=== PATIENT | male | born 1955 | race Caucasian/White ===

== ENCOUNTER 2018-07-30 17:09 | Outpatient (REF) | payer MEDICARE, BC, SELFPAY ==
[2018-07-30 22:21] LABS: Anion Gap 11.2 mmol/L (3-11); BUN 22 mg/dL (7-18); CO2 25.8 mmol/L (21.0-32.0); Calcium 9.2 mg/dL (8.5-10.1); Chloride 102 mmol/L (98-107); Glucose 92 mg/dL (70-100); Potassium 4.1 mmol/L (3.5-5.1); Sodium 139 mmol/L (136-145)
== END 2018-07-30 17:29 ==
LOC: NCHCN 17:09
PROVIDERS: PCP Specialist/Technologist Athletic Trainer; Visit Provider Specialist/Technologist Athletic Trainer
DX: I10 Essential (primary) hypertension (principal)
CPT/HCPCS: 80048

== ENCOUNTER 2018-10-03 15:52 | Emergency (ER) | payer MEDICARE, BC, SELFPAY ==
[2018-10-03 15:54] VITALS: BP 144/73; PULSE 110; RESP 20; TEMP 36.8; O2SAT 96
--- NOTE | 2018-10-03 16:06 | ED.GENADUL_ITS ---
Discharge Plan Disposition Patient Disposition: HOME Condition: Stable Discharge Details Chief Complaint: Urinary Clinical Impression: Dysuria, Urinary tract infection Primary Care Provider: Sabas Langford ED Provider: Pacheco Casillas Home Meds and New Rx's Prescriptions: New levofloxacin 750 mg tablet 750 mg PO DAILY Qty: 7 RF: 0 Continued losartan 50 mg tablet 50 mg PO DAILY RF: 0 sildenafil (antihypertensive) 20 mg tablet 20 mg PO TID RF: 0 naproxen sodium [Aleve] 220 MG capsule 220 mg PO PRN RF: 0 Discharge Instructions Instructions: Urinary Tract Infection in Men (ED) Additional Instructions: follow up with your primary care provider in 1 week especially if symptoms continue if you have fevers, persistent vomit, severe abdominal pain or feel more ill return to the emergency department Medical Decision Making 63 yo male comes in with several days of burning at the end of urination and also burning around the rectal area. Denies being sexually active, no discharge or fevers and no hx of stds. Has dry skin around the rectum, no bleeding or abscesses or drainage. On abnormalities noted on penile and scrotal exam no tenderness. Will check UA ua does have significant wbc's, will tx with oral abx and advised f/u with pcp and return precautions given Differential Diagnosis uti, prostatitis, dry skin Lab Data Lab results reviewed: Yes I reviewed the patient's lab results. HPI General Mode of arrival: ambulatory . Date/Time Provider Initiated Documentation: 10/03/18 15:55 . Limitations to Documentation: no limitations . Information obtained by: patient . History of Present Illness 63 year old M presents to the emergency department with the chief complaint of burning at end of peeing, described as moderate, Quality is described as burning, Patient started experiencing this day(s) (3) and it has been constant. No relieving factors improve symptom(s), No exacerbating factors reported . Patient did receive the following treatments prior to arrival, none Related Data Home Medications Medication Instructions Recorded Confirmed naproxen sodium [Aleve] 220 mg PO PRN 07/20/15 10/03/18 losartan 50 mg tablet 50 mg PO DAILY 08/07/18 10/03/18 sildenafil (antihypertensive) 20 20 mg PO TID 08/07/18 10/03/18 mg tablet levofloxacin 750 mg PO DAILY #7 tab 10/03/18 Previous Rx's Medication Instructions Recorded levofloxacin 750 mg PO DAILY #7 tab 10/03/18 Allergies Allergy/AdvReac Type Severity Reaction Status Date / Time ampicillin Allergy Severe rash Unverified 10/03/18 15:57 General Stated Complaint: Urinary CAROL: 3 Review of Systems Review of Systems All systems reviewed & are unremarkable except as noted in HPI and below Constitutional Denies chills, Denies fever(s) and Denies weakness Cardiovascular Denies chest pain and Denies dyspnea Respiratory Denies dyspnea Gastrointestinal Denies abdominal pain, Denies nausea and Denies vomiting Integumentary/Breasts Denies rash Neurologic Denies weakness PFSH Social History Smoking/Tobacco Use Status: Never Alcohol Intake: current Alcohol Intake frequency: 0-2 drinks per day Alcohol type: wine Drug use: Never Substance use type: does not use Do you feel safe at home: Yes Do you feel safe in your relationship?: Yes Exam Const General: no acute distress Orientation: alert HENMT Head: normal to inspection Ears: external ears normal General nose exam: external nose normal Mouth: moist mucous membranes Eyes General: appearance normal, both eyes and all related structures Neck Neck: normal visual inspection Resp Effort & Inspection: normal respiratory effort and able to speak in complete sentences Cardio Rate: regular rate Skin General skin exam: no rashes or lesions noted Neuro General: alert and oriented x3 Extrem General: normal to inspection Psych Mental Status: mental status grossly normal Course Vital Signs Temperature 36.8 C 10/03/18 15:54 Pulse 110 H 10/03/18 15:54 Respiratory Rate 20 10/03/18 15:54 Blood Pressure 144/73 H 10/03/18 15:54 Pulse Oximetry 96 10/03/18 15:54 Temperature 36.8 C 10/03/18 15:54 Temperature Source Temporal Artery Scan 10/03/18 15:54 Pulse 110 H 10/03/18 15:54 Respiratory Rate 20 10/03/18 15:54 Respiratory Effort Non-Labored 10/03/18 15:54 Blood Pressure 144/73 H 10/03/18 15:54 Blood Pressure Position Sitting 10/03/18 15:54 Pulse Oximetry 96 10/03/18 15:54 Oxygen Delivery Method Room Air 10/03/18 15:54 Oxygen Flow Rate 0 10/03/18 15:54 Pain Level 3 10/03/18 15:54
[2018-10-03 16:57] LABS: Bilirubin Negative (Negative); Blood Moderate (Negative); Clarity Clear (Clear); Glucose Negative (Negative); Ketones Trace mg/dL (Negative); Leukocyte Esterase Small (Negative); Nitrite Negative (Negative); Specific Gravity >= 1.030 (1.005-1.025); Urobilinogen 0.2 EU/dL (Up TO 0.2); pH 5.5 (5-8)
[2018-10-03 17:08] LABS: Bacteria Negative HPF (Negative); C & S Indicated? Yes; Casts Negative LPF (Negative); Crystals Negative HPF (Negative); Epithelial Cells Negative HPF (Negative); Mucus Negative (Negative); Other Cells Negative (Negative); WBC >50 HPF (0-5)
[2018-10-03] MEDS: levoFLOXacin 500 MG, levoFLOXacin 250 MG 750 MG PO (17:22)
[2018-10-05 15:08] LABS: Chlamydia Result Negative; GC Result Negative
== END 2018-10-03 17:26 | disposition home or self-care (01) ==
PROVIDERS: Emergency Provider Emergency Medicine; PCP Specialist/Technologist Athletic Trainer
DX: N39.0 Urinary tract infection, site not specified (principal); L98.8 Other specified disorders of the skin and subcutaneous tissue; K62.89 Other specified diseases of anus and rectum
CPT/HCPCS: 87491; 87591; 99283; 81003; 81015; 87086

== ENCOUNTER 2018-10-14 15:24 | Outpatient (REF) | payer MEDICARE, BC, SELFPAY ==
[2018-10-14 22:04] LABS: Bacteria Negative HPF (Negative); C & S Indicated? Yes; Casts Negative LPF (Negative); Crystals Negative HPF (Negative); Epithelial Cells Negative HPF (Negative); Mucus Negative (Negative); Other Cells Negative (Negative); RBC Negative (0-2)
[2018-10-16 09:54] LABS: PSA, Screening 2.7 ng/ml (0-4.5)
== END 2018-10-14 15:44 ==
LOC: NCHCN 15:24
PROVIDERS: PCP Specialist/Technologist Athletic Trainer; Visit Provider Specialist/Technologist Athletic Trainer
DX: R31.9 Hematuria, unspecified (principal); N39.0 Urinary tract infection, site not specified; Z12.5 Encounter for screening for malignant neoplasm of prostate
CPT/HCPCS: 84153; 81015; 87086

== ENCOUNTER → 2018-10-22 15:11 | Outpatient (BNVA) | payer MEDICARE, BC, SELFPAY | PROVIDERS: PCP Specialist/Technologist Athletic Trainer; Referring Provider Specialist/Technologist Athletic Trainer; Visit Provider Physical Therapy Assistant | DX: Z12.11 Encounter for screening for malignant neoplasm of colon (principal); Z86.010 Personal history of colon polyps; I10 Essential (primary) hypertension ==

== ENCOUNTER 2018-11-02 10:01 | Day surgery (SDC) | payer MEDICARE, BC, SELFPAY ==
--- NOTE | 2018-11-02 07:05 | W.COLOREPORT ---
Date of service: 11/02/18 Time of Service: :21 Colonoscopy Report Date of procedure: 11/02/18 Pre-op diagnosis general: Hx of polyps Post-op diagnosis procedure note: same (Internal hemorrhoids, Diverticulosis and polyps) Procedure: Colonoscopy with polypectomy by hot snare and cold forceps Surgeon: Amina Ulloa Anesthesia proc note operative: other (General/ ASA 2/Janine Thomas, DUNG) Estimated blood loss (mL): 5 Pathology: other (Cecal polyp, Ascending polyp, sigmoid polyp x2, rectal polyp x2) Complications: None Disposition: same day Indications: Mr. Gill is a pleasant 63-year-old gentleman who was seen in the office for a follow-up colonoscopy. His last colonoscopy was in 2013 and he had 5 tubular adenomas and one hyperplastic polyp. Risks, benefits and complications have been reviewed. Complications include but are not limited to bleeding, pain, perforation, missed small lesion/polyp, sore throat, aspiration and adverse reaction to the medications. Questions were entertained and answered to their satisfaction and they wished to proceed. No guarantees were given or implied. Prep: Miralax/Dulcolax Procedure Start Time: :21 Procedure End Time: 11:58 Retraction Time: 29 minutes Findings: Multiple sessile polyps and one larger pedunculated polyp. The pedunculated polyp was just proximal to the previously tattooed area at 18 cm. There was moderate diverticulosis and Grade 2 internal hemorrhoids Procedure Description: After informed consent was obtained the patient was taken to the procedure room and placed in a left decubitous position. Monitors were applied and a time out was done. The patients name, date of , procedure, allergies to medications and metal in their body was reviewed. The patient was then sedated. Once sedated and comfortable a rectal exam was done. External exam was normal. Internal exam revealed a normal sphincter tone and no palpable masses. The prostate felt smooth. The scope was then introduced and retro-flexed. Grade 2 internal hemorrhoids were identified. There were no polyps or masses noted on retro-flexion. The scope was then advanced to the cecum without difficulty. The TI and appendiceal orifice were identified. The prep was good. The scope was then slowly retracted over 29 minutes back into the rectum. Polyps were removed with hot snare in the cecum, with cold forceps in the ascending and sigmoid colon at 22 cm, with a hot snare in the sigmoid at 18 cm, and with cold forceps in the rectum x2. The scope was removed and the patient was woken up and taken back to Same day surgery in stable condition. The patient tolerated the procedure well and there were no immediate complications. Follow up: Follow up will depend on final pathology results.
--- NOTE | 2018-11-02 07:08 | W.PM.DSUDISC ---
Discharge Plan Disposition Patient Disposition: HOME Condition: Good Discharge Details Reason For Visit: Hx of polyps Attending Provider: Amina Ulloa Primary Care Provider: Sabas Langford Home Meds and New Rx's Prescriptions: Continued losartan 50 mg tablet 50 mg PO DAILY RF: 0 sildenafil (antihypertensive) 20 mg tablet 20 mg PO TID RF: 0 Discontinued polyethylene glycol 3350 17 gram/dose powder 238 g PO ONCE Qty: 238 RF: 0 bisacodyl [Dulcolax (bisacodyl)] 5 mg tablet,delayed release (DR/EC) 5 mg PO ONCE Qty: 4 RF: 0 Discharge Instructions Instructions: Colonoscopy (GEN), Diverticulosis (ED), Colorectal Polyps (GEN), Hemorrhoids (ED) Additional Instructions: Findings: 6 polyps Follow up: depends on final pathology. I will send you a letter or call once I have the final pathology results Please call if you develop: fevers >101.5 Nausea or Vomiting Abdominal pain that is not transient DAY SURGERY UNIT POST COLONOSCOPY INSTRUCTIONS 1. Because there will be medication in your system for the next 24 hours, you may feel a little sleepy. Your coordination will be affected. Therefore: a. Do not drive or operate dangerous equipment for 24 hours. b. Do not drink alcohol beverages for 24 hours (not even beer). c. Plan to go home and rest for the day. 2. Generally there are no restrictions on your activity after a day or so has gone by, but you may feel a bit fatigued for a few days. 3 After you arrive home you may have a light meal and return to a normal diet as you can tolerate it without feeling sick to your stomach. 4. After surgery, you may feel pain or discomfort. This should be only transient, but if it persists please contact your doctor. 5. If there are any questions regarding the findings of your procedure, please feel free to contact your doctor. 6. If you are unable to contact your doctor with a problem, contact the hospital at [phone]. 7. Continue all your regular medications unless directed otherwise. I understand the above instructions and have no questions. Signature of Patient or Responsible Adult Escort Date/Time Name of Responsible Adult Escort Signature of Nurse Date/Time Activity:: Activity as Tolerated Diet:: As Tolerated Discharge Orders Discharge Orders: Discharge Order (Routine); Ordered 11/02/18 Ordered By: Amina Ulloa DS: Diagnosis Discharge Diagnosis (1) History of colonoscopy: Status: Chronic (2) Colorectal polyps: (3) Diverticulosis: (4) Internal hemorrhoids:
[2018-11-02 10:30] VITALS: BP 118/75; PULSE 88; RESP 16; TEMP 36.4; O2SAT 98
[2018-11-02] MEDS: Lactated Ringers 1,000 ML 80 ML IV (10:50)
[2018-11-02] MEDS: Lidocaine 2% Pres-Free 5 ML VIAL (11:09)
[2018-11-02] MEDS: PROPOFOL 500 MG/50 ML BTL 50 MG (11:15)
--- NOTE | 2018-11-02 11:31 | BOWEL_PTH ---
PATIENT: Obdulio Gill LOC: [facility] U#:[id number] AGE/SX: 63/M ROOM: RE11/02/[address]: Amina Ulloa MD : [id number] BED: DIS: 11/02/2018 SPEC #: [id number] RECD: 11/02/18 12:50 STATUS: LIUDMILA RE #: [id number] HARRIETT: 11/02/18 11:[address]: Amina Ulloa DEPT: Surgical Specimen RECD BY: Aliya Mcclelland ENTERED: 11/02/18 12:53 SP TYPE: Bowel OTHR DR: Sabas Langford Tissues: 1 - BIOPSY BOWEL 2 - BIOPSY BOWEL 3 - BIOPSY BOWEL 4 - BIOPSY BOWEL 5 - BIOPSY BOWEL Procedures: GROSS AND MICRO LEVEL 4 Comments: [id number]
[2018-11-02 12:40] VITALS: BP 124/76; PULSE 83; RESP 16; TEMP 36.6; O2SAT 97
== END 2018-11-02 13:13 | disposition home or self-care (01) ==
LOC: SUR 10:01
PROVIDERS: PCP Specialist/Technologist Athletic Trainer; Visit Provider Surgery
PROC: 0DJD8ZZ Inspection of Lower Intestinal Tract, Via Natural or Artificial Opening Endoscopic (ICD-10-PCS; CPT 45378; principal; 2018-11-02 11:15)
DX: Z12.11 Encounter for screening for malignant neoplasm of colon (principal); Z86.010 Personal history of colon polyps; Z87.19 Personal history of other diseases of the digestive system; Z80.0 Family history of malignant neoplasm of digestive organs; D12.0 Benign neoplasm of cecum; D12.2 Benign neoplasm of ascending colon; D12.5 Benign neoplasm of sigmoid colon; K63.5 Polyp of colon; K62.1 Rectal polyp; K57.30 Diverticulosis of large intestine without perforation or abscess without bleeding; K64.1 Second degree hemorrhoids; I10 Essential (primary) hypertension
CPT/HCPCS: 45385; 45380; 88305

== ENCOUNTER → 2019-04-27 10:08 | Outpatient (BNVA) | payer MEDICARE, BC, SELFPAY | PROVIDERS: PCP Specialist/Technologist Athletic Trainer; Referring Provider Specialist/Technologist Athletic Trainer; Visit Provider Orthopaedic Surgery | DX: M65.341 Trigger finger, right ring finger (principal); M65.342 Trigger finger, left ring finger; I10 Essential (primary) hypertension | CPT/HCPCS: 99214 ==

== ENCOUNTER 2019-05-10 09:37 | Day surgery (SDC) | payer MEDICARE, BC, SELFPAY ==
[2019-05-10 10:11] VITALS: BP 127/79; PULSE 83; RESP 16; TEMP 36.2; O2SAT 96
[2019-05-10] MEDS: Lidocaine 2% Multi-Dose 50 ML VIAL (13:07)
[2019-05-10] MEDS: Bupivacaine 0.5% Pres-Free 30 ML VIAL (13:08)
--- NOTE | 2019-05-10 13:15 | W.PM.DSUDISC ---
Discharge Plan Disposition Patient Disposition: HOME Condition: Good Discharge Details Reason For Visit: TRIGGER FINGER RELEASE RRF Attending Provider: Frandy Cerda Primary Care Provider: Sabas Langford Home Meds and New Rx's Prescriptions: Continued losartan 50 mg tablet 50 mg PO DAILY RF: 0 sildenafil (pulm.hypertension) 20 mg tablet 20 mg PO TID RF: 0 Discharge Instructions Additional Instructions: BEND AND STRAIGHTEN FINGERS OF R HAND 10 times/hour when awake to prevent swelling. Keep dressings dry for 48 hours. After 48 hours, may remove dressings, shower or bathe and get incision wet. Leave incision uncovered when it is dry and sealed.. Take tylenol or ibuprofen for pain. Follow up with in 2 weeks. Referrals: Frandy Cerda MD [ [facility] STAFF PHYSICIAN] - (f/u in 2 weeks.) Activity:: Activity as Tolerated Remove Dressings/Wound Care:: 48 hours Shower/Bathe:: 48 hours Diet:: As Tolerated Discharge Orders Discharge Orders: Discharge Order (Routine); Ordered 05/10/19 Ordered By: Frandy Cerda DS: Diagnosis Discharge Diagnosis (1) Acquired trigger finger of both ring fingers: Status: Acute
--- NOTE | 2019-05-11 15:28 | ROE_ITS ---
DATE OF PROCEDURE: May 10, 2019 PREOPERATIVE DIAGNOSIS: Trigger right ring finger. POSTOPERATIVE DIAGNOSIS: Same. PROCEDURE: Tendon sheath incision right ring finger for trigger finger release. ANESTHESIA: Local infiltration 2% Xylocaine solution and 0.5% Marcaine solution. SURGEON: Frandy Creda M.D. INDICATIONS: This is a 64-year-old white male with painful locking of his right ring finger of sever al months duration. The patient was able to demonstrate triggering of the finger for me. Trigger fi nger release was recommended to alleviate his discomfort and restore good use to his right hand. The risks and complications of the procedure were explained to the patient in detail preoperatively. PROCEDURE: The patient was taken to the operating room on 05/10/2019 where he was placed supine on th e operating table. The right hand was prepped and draped free in the usual sterile fashion. I infil trated over the flexor sheath of the right ring finger with 2% Xylocaine solution. Once good local a nesthesia was obtained, I made a transverse incision about 5 mm distal to the distal palmar flexion c rease, centered over the flexor sheath of the right ring finger. The incision was about 2 cm in arjun th. The incision was carried down to the subcu. Blunt-tipped Littler scissors were then used to mob ilize the soft tissue away from the flexor sheath. Retractors were inserted and the flexor sheath wa s clearly visualized. I then incised the proximal laura of the flexor sheath in the midline and ex tended the incision proximal and distally with Littler scissors so that the entire A-1 laura was inc ised. I then asked the patient to actively flex and extend his ring finger. He was now able to acti vely flex and extend his right ring finger fully without locking or triggering. The wound was irriga arun with saline solution. The wound margins were infiltrated with 0.5% Marcaine solution. The skin edges were approximated with three interrupted #4-0 nylon sutures. The wound was dressed with Xerofo rm gauze, sterile gauze 4x4's, and wrapped with a 2-inch J Carlos bandage. The patient tolerated the pr ocedure well and was discharged to the Day Surgery Unit in good condition. The patient was given instructions to flex and extend the fingers of his right hand ten times an hour while awake to prevent swelling and stiffness. He is to keep his dressings dry and intact for 48 ho urs. After 48 hours he can remove his dressings, shower or bathe and get his incision wet. He may l eave the incision uncovered when it is dry and sealed. He can take Tylenol or ibuprofen for mild patricia n. He should follow-up with me in two weeks for suture removal.
== END 2019-05-10 13:30 | disposition home or self-care (01) ==
PROVIDERS: PCP Specialist/Technologist Athletic Trainer; Visit Provider Orthopaedic Surgery
PROC: (CPT 26055; principal; 2019-05-10 11:15)
DX: M65.341 Trigger finger, right ring finger (principal)
CPT/HCPCS: 26055

== ENCOUNTER → 2019-05-25 09:05 | Outpatient (BNVA) | payer MEDICARE, BC, SELFPAY | PROVIDERS: PCP Specialist/Technologist Athletic Trainer; Referring Provider Specialist/Technologist Athletic Trainer; Visit Provider Orthopaedic Surgery | DX: Z47.89 Encounter for other orthopedic aftercare (principal); M65.341 Trigger finger, right ring finger; M65.342 Trigger finger, left ring finger ==

== ENCOUNTER → 2019-10-22 09:26 | Outpatient (BNVA) | payer MEDICARE, BC, SELFPAY | PROVIDERS: PCP Specialist/Technologist Athletic Trainer; Referring Provider Specialist/Technologist Athletic Trainer; Visit Provider Surgery | DX: K40.91 Unilateral inguinal hernia, without obstruction or gangrene, recurrent (principal); Z01.818 Encounter for other preprocedural examination; I10 Essential (primary) hypertension | CPT/HCPCS: 99213 ==

== ENCOUNTER → 2020-03-31 08:54 | Outpatient (BNVA) | payer MEDICARE, BC, SELFPAY | PROVIDERS: PCP Family Medicine; Referring Provider Specialist/Technologist Athletic Trainer; Visit Provider Surgery | DX: K40.91 Unilateral inguinal hernia, without obstruction or gangrene, recurrent (principal) | CPT/HCPCS: 99212; 99213 ==

== ENCOUNTER 2020-03-31 10:38 | Outpatient (REF) | payer MEDICARE, BC, SELFPAY ==
[2020-03-31 13:51] LABS: HCT 42.5 % (40.0-50.0); HGB 14.4 g/dL (13.5-17.5); MCH 30.3 pg (27.0-33.0); MCHC 33.9 % (32.0-36.0); MCV 89.3 fL (80-95); Platelet Count 283 10^3/uL (130-400); RBC 4.76 10^6/uL (4.36-5.78); RDW 12.1 % (11.8-14.1); RDW-SD 40.2 fL; WBC 4.88 10^3/uL (4.4-10.8)
[2020-03-31 13:52] LABS: ALT 32 U/L (16-63); AST 17 U/L (15-37); Albumin 3.9 g/dL (3.4-5.0); Alkaline Phosphatase 49 U/L (46-116); Anion Gap 7.4 mmol/L (3-11); BUN 17 mg/dL (7-18); Bilirubin, Total 0.6 mg/dL (0.2-1.0); CO2 25.6 mmol/L (21.0-32.0); CREATININE 1.06 mg/dL (0.70-1.30); Calcium 8.6 mg/dL (8.5-10.1); Calculated LDL 105 mg/dL (<100); Chloride 104 mmol/L (98-107); Cholesterol 173 mg/dL (<200); Glucose 116 mg/dL (74-106); HDL Cholesterol 59 mg/dL (40-60); Potassium 4.5 mmol/L (3.5-5.1); Sodium 137 mmol/L (136-145); Triglyceride 47 mg/dL (<150)
[2020-03-31 22:42] LABS: PSA, Screening 2.6 ng/mL (0.0-4.5)
== END 2020-03-31 10:58 ==
LOC: NCHCN 10:38
PROVIDERS: PCP Family Medicine; Visit Provider Family Medicine
DX: R73.03 Prediabetes (principal); I10 Essential (primary) hypertension; R36.9 Urethral discharge, unspecified; Z12.5 Encounter for screening for malignant neoplasm of prostate
CPT/HCPCS: 80053; 80061; 84153; 85027

== ENCOUNTER 2020-04-07 19:33 | Outpatient (REF) | payer MEDICARE, BC, SELFPAY ==
[2020-04-07 21:17] LABS: Bilirubin Negative (Negative); Blood Small (Negative); Clarity Sl Cloudy (Clear); Glucose Negative (Negative); Ketones Negative (Negative); Leukocyte Esterase Large (Negative); Nitrite Negative (Negative); Specific Gravity >= 1.030 (1.005-1.025); Urobilinogen 0.2 EU/dL (Up TO 0.2); pH 6.5 (5-8)
[2020-04-07 21:27] LABS: Bacteria Moderate HPF (Negative); C & S Indicated? Yes; Casts Negative LPF (Negative); Crystals Negative HPF (Negative); Epithelial Cells Rare HPF (Negative); Mucus Negative (Negative); WBC 20-50 HPF (0-5)
== END 2020-04-07 19:53 ==
LOC: NCHCN 19:33
PROVIDERS: PCP Family Medicine; Visit Provider Family Medicine
DX: R31.9 Hematuria, unspecified (principal)
CPT/HCPCS: 81003; 81015; 87086

== ENCOUNTER 2020-04-21 01:47 | Outpatient (CLI) | payer MEDICARE, BC, SELFPAY ==
[2020-04-22 11:55] LABS: COVID-19 RT-PCR UVMMC Result Negative (Negative)
== END 2020-04-21 02:07 ==
PROVIDERS: PCP Family Medicine; Visit Provider Surgery
DX: Z11.52 Encounter for screening for COVID-19 (principal); Z01.818 Encounter for other preprocedural examination
CPT/HCPCS: U0003

== ENCOUNTER 2020-04-26 06:09 | Day surgery (SDC) | payer MEDICARE, BC, SELFPAY ==
[2020-04-26] VITALS (7 sets, daily range): BP systolic 71–116; BP diastolic 50–73; PULSE 71–86; RESP 14–18; TEMP 36.3–36.6; O2SAT 92–100
[2020-04-26] MEDS: Acetaminophen 500 MG TAB 1000 MG PO (06:49)
[2020-04-26] MEDS: Celecoxib 200 MG CAP PO (06:50)
--- NOTE | 2020-04-26 06:51 | ROE_ITS ---
Date of service: 04/26/20 Time of Service: 08:31 Operative Note Operative Note DATE OF PROCEDURE: 04/26/20 PRE-OP DIAGNOSIS: Right recurrent inguinal hernia POST-OP DIAGNOSIS: same PROCEDURE: Right inguinal hernia repair with mesh SURGEON: Amina Ulloa REGISTERED NURSE MIDWIFE: Nancy Jameson ANESTHESIA: MAC (ASA 2/ Quincy Mcfarlane CRNA) and regional ESTIMATED BLOOD LOSS: 10 PATHOLOGY: none sent COMPLICATIONS: None Patient was transported to: PACU Patient's condition: stable Implants: Bard Mesh: [id number] REF- [id number] 2024-04-20 Indications: Mr. Gill is a pleasant 64-year-old gentleman with a recurrent right inguinal hernia. He states that he has had it for a while. He knows it is there but he has had no pain. I could not fully reduce it in the office today. We did discuss signs and symptoms of incarceration and strangulation for which she should get immediate attention in the emergency department. We discussed the hernia repair in detail. Reviewed risks and benefits and complications. We discussed Covid testing prior to his procedure. We also reviewed the anesthesia with a TAP block. Risks, benefits and complications have been reviewed. Complications include but are not limited to bleeding, infection, injury to vas, vessels and nerves, injury to bowel and adverse reaction to medications. Questions were entertained and answered to their satisfaction and they wished to proceed. COVID-19 testing explained to the patient. Reason for test reviewed. Quarantine per state requirements reviewed with patient. Patient understands and agrees to testing. Findings: Small recurrent hernia medial to the pubic symphasis. The old mesh otherwise was in good position and no indirect hernia recurrence felt. Procedure Description: After informed consent was obtained the patient was taken to the operating room and placed in a supine position. Monitors and SCDs were applied and a timeout was done. The patient's name, date of , procedure type, procedure site, allergies to medications, preoperative antibiotic, and DVT prophylaxis were all reviewed. Fire risk was assessed. Next anesthesia did a tap block on the right side under ultrasound guidance. Please see their separate dictation. Once anesthesia was done the abdomen was prepped and draped in a sterile surgical fashion. 1% lidocaine was injected into the dermis in the right lower quadrant. An incision was made with a 10 blade in the right lower quadrant. Dissection was done with cautery through the subcutaneous tissues and Ana's fascia down to the incarcerated omentum. The omentum was followed down to the fascia. There was a small 1 cm defect between the pubic symphasis and the ileoinguinal ligament. The cord structures were identified and a drain was placed around them. The cremasteric muscle was dissected away from the cord structures using both cautery and blunt dissection. I attempted to reduce the omentum but was unable to. Most of the omentum was amputated. The remnant was pushed back into the peritoneum. A 3 x 6 piece of mesh was then cut in thirds. 2 of the thirds were made into a small plug. The plug was placed into the opening and secured with 2-0 proline to the external oblique fashia. Once the mesh was secured the tissues were irrigated with some normal saline. No bleeding was identified. The old mesh was palpated and was well scarred in. The Ana's fascia was re-approximated using interrupted 2-0 Vicryl. The subcutaneous tissue was re-approximated with 3-0 vicryl. The dermis was re- approximated with a running 4-0 Vicryl. The skin was cleaned and dried and skin affix was applied. The patient was woken up and taken back to recovery in stable condition. There were no immediate complications. Sponge, instrument and needle counts were correct at the end of the case x2.
--- NOTE | 2020-04-26 06:56 | W.PM.DSUDISC ---
Discharge Plan Disposition Patient Disposition: HOME Condition: Good Discharge Details Reason For Visit: Right inguinal hernia repair with mesh Attending Provider: Amina Ulloa Primary Care Provider: Jessica Partida Home Meds and New Rx's Prescriptions: Continued losartan 50 mg tablet 50 mg PO DAILY RF: 0 sildenafil (pulm.hypertension) 20 mg tablet 20 mg PO RF: 0 fluticasone propionate [Flonase Allergy Relief] 50 mcg/actuation spray,suspension 1 spray CAL BID RF: 0 Discharge Instructions Additional Instructions: Activity at Home after surgery: 1. Make sure you walk outside at least 4 times per day 2. You should be able to climb a flight of stairs 3. No driving while in pain or taking pain medications 4. No strenuous activity or heavy lifting for 4 weeks (open surgery) Diet, Nutrition, & wound healin. Avoid alcohol until after you are recovered from your surgery 2. Make sure to eat plenty of lean protein (meat, fish, eggs, cottage cheese, beans) 3. Eat a variety of fruits and vegetables. Eat plenty of high fiber foods to avoid constipation. 4. Drink plenty of liquids to stay hydrated and avoid constipation Pain Medications: 1. Tylenol 650 mg every 6 hours as needed and Ibuprofen 600 mg every 6 hoursas needed. You may alternate between the 2 medications. 2. If a narcotic has been prescribed take as directed only for breakthrough pain For Constipation: 1. Take Milk of Magnesia or MiraLax as needed for constipation Other: 1. You may shower daily. Do not scrub the incisions 2. Do not soak the incisions for 1 week 3. You may alternate ice and heat as needed for pain and swelling Wound Care: 1. Keep the incisions clean and dry Please call our office if you develop: 1. Fevers >101.5 2. Nausea or Vomiting 3. Worsening pain 4. Redness and thick discharge from the wounds If after hours please call the Hospital at and ask to speak to the on-call surgeon Referrals: Amina Ulloa MD [ [facility] STAFF PHYSICIAN] - 05/05/20 8:30 am Activity:: no lifting >20 lb x 4 weeks Remove Dressings/Wound Care:: Do Not Remove Shower/Bathe:: 24 hours Diet:: As Tolerated Discharge Orders Discharge Orders: Discharge Order (Routine); Ordered 04/26/20 Ordered By: Amina Ulloa
[2020-04-26] MEDS: Lactated Ringers 1,000 ML 80 ML IV (07:05)
[2020-04-26] MEDS: ceFAZolin 2 GM/50 ML BAG IVPB (07:26)
[2020-04-26] MEDS: Bupivacaine LIPOSOME/PF 133 MG/10 ML VIAL IJ (07:35)
[2020-04-26] MEDS: Bupivacaine 0.25% Pres-Free 30 ML VIAL (07:35)
[2020-04-26] MEDS: Lidocaine 1% Multi-Dose 50 ML VIAL (07:53)
[2020-04-26] MEDS: oxyCODONE 5 MG TAB PO (10:15)
== END 2020-04-26 11:42 | disposition home or self-care (01) ==
PROVIDERS: PCP Family Medicine; Visit Provider Surgery
PROC: (CPT 49520; principal; 2020-04-26 07:45)
DX: K40.91 Unilateral inguinal hernia, without obstruction or gangrene, recurrent (principal); G89.18 Other acute postprocedural pain
CPT/HCPCS: 49520; 76942; C1781; J0690; J1100; J2001

== ENCOUNTER 2020-05-04 14:58 | Outpatient (REF) | payer MEDICARE, BC, SELFPAY | END 2020-05-04 14:59 | disposition home or self-care (01) | LOC: NCHCN 14:58 | PROVIDERS: PCP Family Medicine; Visit Provider Family Medicine | DX: R31.9 Hematuria, unspecified (principal) | CPT/HCPCS: 87086 ==

== ENCOUNTER → 2020-05-05 08:24 | Outpatient (BNVA) | payer MEDICARE, BC, SELFPAY | PROVIDERS: PCP Family Medicine; Referring Provider Family Medicine; Visit Provider Surgery | DX: Z48.815 Encounter for surgical aftercare following surgery on the digestive system (principal) ==

== ENCOUNTER → 2020-06-15 14:17 | Outpatient (BNVA) | payer MEDICARE, BC, SELFPAY | PROVIDERS: PCP Family Medicine; Referring Provider Family Medicine; Visit Provider Nurse Practitioner Gerontology | DX: R31.9 Hematuria, unspecified (principal) | CPT/HCPCS: 81003; 99214 ==

== ENCOUNTER 2020-06-15 21:56 | Outpatient (REF) | payer MEDICARE, BC, SELFPAY ==
[2020-06-15 19:37] LABS: Bilirubin Negative (Negative); Blood Small (Negative); Clarity Clear (Clear); Glucose Negative (Negative); Ketones Negative (Negative); Leukocyte Esterase Negative (Negative); Nitrite Negative (Negative); Specific Gravity 1.025 (1.005-1.025); Urobilinogen 0.2 EU/dL (Up TO 0.2)
[2020-06-15 19:48] LABS: Bacteria Negative HPF (Negative); C & S Indicated? No; Casts Negative LPF (Negative); Crystals Negative HPF (Negative); Epithelial Cells Rare HPF (Negative); Mucus Negative (Negative); WBC 0-2 HPF (0-5)
== END 2020-06-15 21:57 | disposition home or self-care (01) ==
LOC: LBN 21:56
PROVIDERS: PCP Family Medicine; Visit Provider Nurse Practitioner Gerontology
DX: R31.9 Hematuria, unspecified (principal)
CPT/HCPCS: 81003; 81015

== ENCOUNTER → 2020-12-21 12:56 | Outpatient (BNVA) | payer MEDICARE, BC, SELFPAY | PROVIDERS: PCP Family Medicine; Referring Provider Family Medicine; Visit Provider Nurse Practitioner Gerontology | DX: R31.9 Hematuria, unspecified (principal) | CPT/HCPCS: 81003; 99213 ==

== ENCOUNTER 2020-12-21 18:12 | Outpatient (REF) | payer MEDICARE, BC, SELFPAY | END 2020-12-21 18:13 | disposition home or self-care (01) | LOC: LBN 18:12 | PROVIDERS: PCP Family Medicine; Visit Provider Nurse Practitioner Gerontology | DX: R31.29 Other microscopic hematuria (principal) | CPT/HCPCS: 87086 ==

== ENCOUNTER 2021-01-05 00:31 | Outpatient (CLI) | payer MEDICARE, BC, SELFPAY ==
--- NOTE | 2021-01-05 06:30 | DI.CT_ITS ---
Exam(s) CT ABDOMEN PELVIS WO/W EXAM: CT ABDOMEN PELVIS WO/W TECHNIQUE: Imaging Protocol: Axial computed tomography images with coronal and sagittal reformatted images were created and reviewed. Noncontrast followed by venous phase imaging and 7 minutes delayed imaging. CONTRAST MATERIAL: Intravenous: Omnipaque 350 Contrast volume:100 ml Contrast route:IV - Oral: no COMPARISON: None FINDINGS: ABDOMEN: Lung Bases: Normal where visualized. Liver: Normal density. No measurable mass. Gallbladder and biliary tract: No radiodense calculus or dilation. Pancreas: Normal density, no abnormal calcifications or inflammatory process. Spleen: Normal. Kidneys: Normal size, contour and axis. No radiodense stones or obstructive uropathy. Multiple bilate ral enhancing masses. The largest 2 lesions are on the lower pole of the right kidney and measure 3.3 and 2.7 cm respectively. The borders are mainly smooth. There are innumerable small bilateral enhanc ing masses as well as several bilateral cysts. No collecting system filling defect. Adrenal glands: No masses seen. Lymph nodes: Within normal limits. Abdominal Aorta: Abdominal portion non-dilated. Mild atherosclerotic changes. No adenopathy. PELVIS: Bladder: Symmetric distention, no gross wall thickening. No stones. Bowel: No obstruction or bowel wall thickening. Appendix normal. Diverticulosis descending and sigmoi d. No evidence of diverticulitis. Peritoneal cavity: No ascites, collection or mesenteric inflammatory response. No adenopathy. Bones: Unremarkable for age. Reproductive organs: Mildly enlarged prostate. IMPRESSION: Bilateral enhancing renal masses, with the largest on the right kidney. Findings could represent bila teral primary renal cancer versus metastatic disease. RADIATION DOSE DELIVERED: 2,578.4mGy.cm Total DLP DATA REPOSITORY: All CT scans at this facility are submitted to the National Radiology Data Registry (NRDR) Dose Index Registry (DIR) with the [employer] ([employer]). RADIATION OPTIMIZATION: All CT scans at this facility use at least one of these dose optimization te chniques: automated exposure control; mA and/or kV adjustment per patient size (includes targeted exa ms where dose is matched to clinical indication); or iterative reconstruction.
[2021-01-05 09:29] LABS: CREATININE 0.9 mg/dL (0.70-1.30)
[2021-01-05] MEDS: Normal Saline - Diluent 50 ML VIAL IV (10:25)
[2021-01-05] MEDS: Omnipaque 350 MG/ML 100 ML BTL IJ (10:26)
== END 2021-01-05 00:51 ==
PROVIDERS: PCP Family Medicine; Visit Provider Nurse Practitioner Gerontology
DX: R31.9 Hematuria, unspecified (principal); N28.89 Other specified disorders of kidney and ureter; N28.1 Cyst of kidney, acquired
CPT/HCPCS: 74178; 82565; J3490

== ENCOUNTER → 2021-01-10 13:47 | Outpatient (BNVA) | payer MEDICARE, BC, SELFPAY | PROVIDERS: PCP Family Medicine; Referring Provider Family Medicine; Visit Provider Nurse Practitioner Gerontology | DX: N28.89 Other specified disorders of kidney and ureter (principal); Z71.2 Person consulting for explanation of examination or test findings | CPT/HCPCS: 99214 ==

== ENCOUNTER 2022-06-04 10:05 | Outpatient (REF) | payer MEDICARE, BC, SELFPAY ==
[2022-06-04 15:08] LABS: ALT 36 U/L (16-63); AST 20 U/L (15-37); Alkaline Phosphatase 57 U/L (46-116); BUN 16 mg/dL (7-18); Bilirubin, Total 0.7 mg/dL (0.2-1.0); Calcium 9.1 mg/dL (8.5-10.1); Calculated LDL 134 mg/dL (<100); Chloride 105 mmol/L (98-107); Cholesterol 201 mg/dL (<200); Estimated GFR 81.47 (mL/min/1.73m2); Glucose 111 mg/dL (74-106); HDL Cholesterol 59 mg/dL (40-60); Potassium 4.5 mmol/L (3.5-5.1); Sodium 141 mmol/L (136-145); Total Protein 7.4 g/dL (6.4-8.2); Triglyceride 42 mg/dL (<150)
[2022-06-04 15:28] LABS: Vitamin D 25 Total 29.4 ng/mL (30-100)
[2022-06-04 22:06] LABS: PSA, Screening 3.1 ng/mL (<=4.5)
== END 2022-06-04 10:06 | disposition home or self-care (01) ==
LOC: NCHCN 10:05
PROVIDERS: PCP Family Medicine; Visit Provider Family Medicine
DX: I10 Essential (primary) hypertension (principal); R73.03 Prediabetes; Z12.5 Encounter for screening for malignant neoplasm of prostate; E55.9 Vitamin D deficiency, unspecified
CPT/HCPCS: 80053; 80061; 82306; 84153

== ENCOUNTER → 2022-09-05 09:53 | Outpatient (BNVA) | payer MEDICARE, BC, SELFPAY | PROVIDERS: PCP Family Medicine; Referring Provider Family Medicine; Visit Provider Physical Therapy Assistant | DX: Z12.11 Encounter for screening for malignant neoplasm of colon (principal); Z86.010 Personal history of colon polyps ==

== ENCOUNTER 2022-09-26 06:59 | Day surgery (SDC) | payer MEDICARE, BC, SELFPAY ==
--- NOTE | 2022-09-25 19:01 | PDOC.DSDIS_ITS ---
Date of service: 09/26/22 Time of Service: 08:37 Discharge Plan Disposition Patient Disposition: Home Condition: Good Discharge Details Reason For Visit: Screening colonoscopy Attending Provider: Fabrice Perez Primary Care Provider: Jessica Partida Home Meds and New Rx's Prescriptions: Continued sildenafil (pulm.hypertension) 20 mg tablet 20 mg PO DIRECTED Patient Comments: PRN ONLY acetaminophen [Tylenol Extra Strength] 500 mg tablet 1,000 mg PO TID PRN fluticasone propionate [Flonase Allergy Relief] 50 mcg/actuation spray,suspension 1 spray CAL BID Rx Instructions: administer into each nostril amlodipine 5 mg tablet 10 mg PO DAILY Discontinued bisacodyl [Dulcolax (bisacodyl)] 5 mg tablet,delayed release (DR/EC) 5 mg PO ONCE Qty: 4 0RF Rx Instructions: Take per colonoscopy instructions provided by ordering providers office polyethylene glycol 3350 17 gram/dose powder 17 g PO ONCE Qty: 238 0RF Rx Instructions: Take per colonoscopy instructions provided by ordering providers office Discharge Instructions Instructions: Colorectal Polyps (GEN), Diverticulosis (GEN), Diverticulosis Diet (GEN) Additional Instructions: Obdulio, we were able to complete your colonoscopy today without any problems. The quality of your preparation was excellent. I did find 3 small polyps. I removed these all completely. Incidentally, you also have some diverticulosis. These are small weak spots in the colon wall that typically accumulate with age. The best way to manage them is with a diet rich in fiber and hydration, and avoidance of constipation symptoms. I have attached some information here regarding both polyps as well as diverticulosis. I will be in touch when I have the final pathology report on the polyps with my recommendations for your next colonoscopy. 1. If tolerated, consume a soft, low fiber diet for 1-2 days. 2. Do not drive, drink alcohol, operate machinery, make critical decisions, or do activities that require coordination or balance for 24 hours. 3. Because air was put into your colon during the procedure, expelling air from your rectum (passing gas or farting) is normal. 4. You may not have a bowel movement for 1-3 days because of the colonoscopy prep. This is normal. 5. Go directly to the emergency room if you notice any of the following: Develop chills (warm to touch), or if you have a thermometer and your temperature is above 101 Difficulty breathing or difficultly swallowing Persistent vomiting Severe abdominal pain, other than gas cramps Severe chest pain Black, tarry stools Any bleeding ? exceeding one tablespoon 6. Call your physician if the site where your intravenous was started becomes red, swollen, painful, and warm to touch. 7. Your physician has reviewed your pre-procedure medications. Please continue t o take those medications as previously ordered. You will be given specific information/education regarding any changes to your medications before leaving. Activity:: Activity as Tolerated Diet:: As Tolerated Discharge Orders Discharge Orders: Discharge Order (Routine); Ordered 09/25/22 Ordered By: Fabrice Perez DS: Diagnosis Discharge Diagnosis (1) Screening for colon cancer: Status: Acute Asessment and Plan: Follow-up on polypectomy results
--- NOTE | 2022-09-25 19:03 | COLE_ITS ---
Date of service: 09/26/22 Time of Service: 08:39 Colonoscopy Report Date of procedure: 09/26/22 Pre-op diagnosis general: Screening colonoscopy Post-op diagnosis procedure note: other (Diverticulosis, colorectal polyps) Procedure: Colonoscopy with polypectomy Surgeon: Fabrice Perez Anesthesia Type: General:No Airway Estimated blood loss (mL): 10 Pathology: other (Colon polyps at 75 and 50 cm, rectal polyp) Complications: None Disposition: same day Indications: Obdulio is a 67 year old male who needs a screening colonocsopy Prep: Miralax/Dulcolax Procedure Start Time: 08:17 Procedure End Time: 08:28 Retraction Time: 7 Findings: Sigmoid diverticulosis, colon polyps at 75 and 50 cm, rectal polyp Procedure Description: After the induction of monitored anesthetic care, and with the patient in left lateral decubitus position, I began by performing an external anorectal exam.? Perineum and skin were normal, as was the anal verge.? There was no evidence of external hemorrhoids.? Next, I performed a digital rectal exam.? I did not appreciate any abnormal findings.? Next, I advanced a colonoscope into the rectal vault.? I performed retroflexion.? There are grade 1 internal hemorrhoids.? Using insufflation, I then advanced the colonoscope beyond the rectal folds and into the sigmoid colon before advancing towards the cecum.? There was moderate sigmoid diverticulosis the quality of the prep was excellent.? The scope was noted to be in the cecum by identification of the ileocecal valve and appendiceal orifice.? I then began withdrawing the colonoscope using repeated irrigation as necessary for full evaluation of the colonic mucosa. I identified a 0.25 cm polyp at 75 cm. This was sessile, and I removed it with cold forceps. There was minimal bleeding. Similarly, at 50 cm I found another 0.25 centimeters sessile polyp. I also removed this with cold forceps. Around 30 cm from the anus was a previous tattoo alley. I carefully examined this area. There was no evidence of any polyps in the region of the tattoo. Once the scope was withdrawn to the level of the rectum, great care was taken to examine portions of the rectal folds.? About 15 cm from the anal verge was another polyp. This was in the rectum. It was 0.25 cm and sessile. I removed this with cold forceps like the other ones. There was minimal bleeding here. Finally, the scope was withdrawn and the patient was brought to the same- day surgery recovery unit as the anesthetic wore off. ?The findings and instructions were shared with the patient prior to discharge.
[2022-09-26 07:11] VITALS: BP 137/80; PULSE 95; RESP 16; TEMP 36.6; O2SAT 95
[2022-09-26] MEDS: Lactated Ringers 1,000 ML 80 ML IV (07:34)
--- NOTE | 2022-09-26 07:56 | W.ANESPRE ---
General Info Date of Service Date Performed: 09/26/22 Height: 5 ft 6 in Weight: 82.5 kg Body Mass Index (BMI): 29.3 Surgical Procedure: Operation Date: 09/26/22 08:20 Proposed Procedure Side Surgeon p Colonoscopy Fabrice Perez MD Meds Allergies and Home Medications Allergies Allergy/AdvReac Type Severity Reaction Status Date / Time ampicillin Allergy Severe rash Verified 09/26/22 07:09 Home Medication Medication Instructions Recorded sildenafil (pulm.hypertension) 20 20 mg PO DIRECTED 04/27/19 mg tablet fluticasone propionate 50 1 spray intranasal BID 10/19/19 mcg/actuation nasal spray,suspension (Flonase Allergy Relief) acetaminophen 500 mg tablet 1,000 mg PO TID PRN 06/15/20 (Tylenol Extra Strength) amlodipine 5 mg tablet 10 mg PO DAILY 02/04/22 Current Visit Medications: Current Medications Generic Name Dose Route Start Last Admin Trade Name Freq PRN Reason Stop Dose Admin Hyoscyamine Sulfate 0.125 mg 09/25/22 19:04 Hyoscyamine 0.125 Mg Sl/Oral/Chew SL 10/25/22 19:03 DIRECTED PRN Ringer's Solution 1,000 mls @ 80 mls/hr 09/26/22 06:00 IV 09/26/22 23:59 INFUSION [facility] IV Miscellaneous Supplies 1 each 09/26/22 06:00 Iv Access IV 09/26/22 23:59 DIRECTED GABRIELA Ondansetron HCl 4 mg 09/25/22 19:04 Ondansetron 4 Mg/2 Ml Vial IVP 10/25/22 19:03 Q4H PRN PRN Nausea / Vomiting Sodium Chloride 0 ml 09/26/22 06:00 Normal Saline Flush 10 Ml Syr IV 09/26/22 23:59 PRN PRN Sodium Chloride 0 ml 09/26/22 06:00 Normal Saline 10 Ml Vial IJ 09/26/22 23:59 DIRECTED PRN Sterile Water 0 ml 09/26/22 06:00 Water,Injection,Sterile 10 Ml Vial IJ 09/26/22 23:59 DIRECTED PRN PFSH Active Problems Active Problems: Problem Status Onset Code History of colonoscopy Z98.890 Penile discharge R36.9 Hematuria R31.9 Prediabetes R73.03 S/P inguinal hernia repair, follow-up exam Z09 Screening for colon cancer Z12.11 Medical History Medical History Acquired trigger finger of both ring fingers Bilateral kidney masses Per pt. states he has masses on both kidneys but states they are benign per pt. stated PCP Dr. Partida stated. Colon polyp Last [place]: 03/21/14 w/ Dr. Kateryna Ulloa, tubular adenoma x5, 1 hyperplastic polyp, repeat 5 years Colorectal polyps (~11/02/18) Derangement of posterior horn of medial meniscus of left knee (07/26/15) Diverticulosis Elevated glucose Family history of colon cancer in mother History of trigger finger HTN (hypertension) Internal hemorrhoids Primary osteoarthritis of left knee (08/23/15) Recurrent simple right inguinal hernia s/p repair 04/26/2020-[facility] Ulloa Tubular adenoma Surgical History Surgical History Hx of hernia repair groin, 3 done at once, pt. believes he received mesh S/P bilateral inguinal hernia repair (~04/26/20) Tobacco Smoking/Tobacco Use Status: Never Alcohol Alcohol Intake: current Alcohol intake frequency: 0-2 drinks per day Alcohol type: wine Substance Use Substance use: Never Substance use type: does not use Vital Signs and Lab Results Vital Signs Most Recent Vital Signs in EMR: Most Recent Vital Signs Temp Pulse Resp BP Pulse Ox 36.6 C 95 H 16 137/80 95 09/26/22 07:11 09/26/22 07:11 09/26/22 07:11 09/26/22 07:11 09/26/22 07:11 Lab Results Blood Type / Crossmatch: No Data to Display Complete Blood Count: No Data to Display Complete Metabolic Panel: No Data to Display Liver Function Panel: No Data to Display Coagulation Panel: No Data to Display Cardiac Panel: No Data to Display Arterial Blood Gas: No Data to Display Venous Blood Gas: No Data to Display Pancreas Panel: No Data to Display Thyroid Panel: No Data to Display Infectious Disease: No Data to Display Blood Cultures: No Data to Display Toxicology Panel: No Data to Display Anesthesia Assessment and Plan Anesthesia History Personal History: No History of Anesthesia Complications Family History: No Family History of Anesthesia Complications Exercise Tolerance Exercise Tolerance: Metabolic Equivalents>4 Pertinent Negatives Pertinent Negatives: No Symptoms of GERD, No Major Cardiovascular Symptoms or Complaints and No Major Pulmonary Symptoms or Complaints Cardiac & Pulmonary Exam Cardiac Exam: Normal S1/S2 Heart Sounds Pulmonary Exam: Clear Bilateral Breath Sounds Implantable Cardiac Device Does patient have a Pacemaker or an ICD?: No Airway Exam Known Difficult Airway: No Mallampati Class: 2 Mouth Opening: Normal (> 3cm) Thyromental Distance: Greater than 3 cm Neck Range of Motion: Full ROM Neck Circumference: Normal Teeth Condition: Normal Dentition ASA Classification ASA Score: ASA 2 Emergency Case?: No NPO Status NPO Status: NPO Clears >2 hours, Solids >8 hours Anesthesia Plan Resuscitation Status: Full Code Anesthesia Technique: General Anesthesia Airway Planned: Natural Airway Monitors Used: Standard Monitors
[2022-09-26 07:58] VITALS: BMI 29.3
--- NOTE | 2022-09-26 08:19 | BOWEL_PTH ---
PATIENT: Obdulio Gill LOC: [facility] U#:[id number] AGE/SX: 67/M ROOM: RE09/26/[address]: Fabrice Perez MD : [id number] BED: DIS: 09/26/2022 SPEC #: [id number] RECD: 09/26/22 12:44 STATUS: LIUDMILA RE #: [id number] HARRIETT: 09/26/22 08:[address]: Fabrice Perez DEPT: Surgical Specimen RECD BY: Aliya Mcclelland ENTERED: 09/26/22 12:45 SP TYPE: Bowel OTHR DR: Jessica Partida Tissues: 1 - BIOPSY BOWEL 2 - BIOPSY BOWEL 3 - BIOPSY BOWEL Procedures: GROSS AND MICRO LEVEL 4 Comments: [id number]
[2022-09-26 08:34] VITALS: BP 132/72; PULSE 95; RESP 16; TEMP 36.4; O2SAT 95
[2022-09-26 09:07] VITALS: BP 126/77; PULSE 75; RESP 16; TEMP 36.6; O2SAT 95
--- NOTE | 2022-09-26 09:07 | W.ANESPOSTOP ---
Postoperative Evaluation Date, Time and Location Date Performed: 09/26/22 Time Performed: 09:07 Patient Location: Day Surgery Unit Vital Signs Most Recent Imported Vital Signs: Most Recent Vital Signs Temp Pulse Resp BP Pulse Ox 36.4 C L 95 H 16 132/72 95 09/26/22 08:34 09/26/22 08:34 09/26/22 08:34 09/26/22 08:34 09/26/22 08:34 Pain Score Most Recent Pain Score: Most Recent Pain Score Pain Level 0 09/26/22 08:34 Assessment Mental Status: Awake (Alert & Oriented to Patient Baseline) Airway and Respiratory Function: Patent airway with normal (patient baseline) respiratory exam Cardiovascular Function: Hemodynamically Stable Hydration Status: Adequately Hydrated Nausea & Vomiting: No Nausea or Vomiting Pain: Pt. Denies Any Pain Peripheral Nerve Block: Patient did not receive a nerve block
== END 2022-09-26 09:30 | disposition home or self-care (01) ==
PROVIDERS: PCP Family Medicine; Visit Provider Surgery
PROC: 0DJD8ZZ Inspection of Lower Intestinal Tract, Via Natural or Artificial Opening Endoscopic (ICD-10-PCS; CPT 45378; principal; 2022-09-26 08:15)
DX: Z12.11 Encounter for screening for malignant neoplasm of colon (principal); Z86.010 Personal history of colon polyps; K62.1 Rectal polyp; K57.30 Diverticulosis of large intestine without perforation or abscess without bleeding; K63.5 Polyp of colon
CPT/HCPCS: 45380; 88305

== ENCOUNTER 2023-06-02 10:27 | Outpatient (REF) | payer MEDICARE, BC, SELFPAY ==
[2023-06-02 16:16] LABS: Hemoglobin A1C 5.8 % (<5.7)
[2023-06-02 17:28] LABS: Vitamin D 25 Total 33.2 ng/mL (30-100)
[2023-06-02 18:02] LABS: ALT 30 U/L (16-63); AST 19 U/L (15-37); Albumin 3.9 g/dL (3.4-5.0); Alkaline Phosphatase 54 U/L (46-116); Anion Gap 11.3 mmol/L (3-11); BUN 19 mg/dL (7-18); Bilirubin, Total 0.8 mg/dL (0.2-1.0); CO2 24.7 mmol/L (21.0-32.0); CREATININE 1.3 mg/dL (0.70-1.30); Calcium 9.2 mg/dL (8.5-10.1); Calculated LDL 119 mg/dL (<100); Chloride 105 mmol/L (98-107); Cholesterol 182 mg/dL (<200); Glucose 109 mg/dL (74-106); HDL Cholesterol 53 mg/dL (40-60); Potassium 4.7 mmol/L (3.5-5.1); Sodium 141 mmol/L (136-145); Total Protein 7.1 g/dL (6.4-8.2); Triglyceride 54 mg/dL (<150)
[2023-06-03 09:40] LABS: PSA, Screening 3.8 ng/mL (<=6.5)
== END 2023-06-02 10:28 | disposition home or self-care (01) ==
LOC: NCHCN 10:27
PROVIDERS: PCP Family Medicine; Visit Provider Family Medicine
DX: I10 Essential (primary) hypertension (principal); R73.03 Prediabetes; Z00.00 Encounter for general adult medical examination without abnormal findings; Z12.5 Encounter for screening for malignant neoplasm of prostate
CPT/HCPCS: 80053; 80061; 82306; 84153; 83036

== ENCOUNTER 2024-06-08 11:23 | Outpatient (REF) | payer MEDICARE, BC, SELFPAY ==
[2024-06-08 15:06] LABS: Hemoglobin A1C 5.8 % (<5.7)
[2024-06-08 15:27] LABS: ALT 26 U/L (16-63); AST 16 U/L (15-37); Alkaline Phosphatase 52 U/L (46-116); Anion Gap 7.4 mmol/L (3-11); BUN 14 mg/dL (7-18); Bilirubin, Total 0.8 mg/dL (0.2-1.0); CO2 27.6 mmol/L (21.0-32.0); Calcium 9.2 mg/dL (8.5-10.1); Calculated LDL 129 mg/dL (<100); Chloride 106 mmol/L (98-107); Cholesterol 190 mg/dL (<200); Estimated GFR 80.47 (mL/min/1.73m2); Glucose 106 mg/dL (74-106); HDL Cholesterol 54 mg/dL (>or=40); Potassium 4.2 mmol/L (3.5-5.1); Sodium 141 mmol/L (136-145); Total Protein 7.2 g/dL (6.4-8.2); Triglyceride 39 mg/dL (<150); Vitamin D 25 Total 93 ng/mL (30-100)
== END 2024-06-08 11:24 | disposition home or self-care (01) ==
LOC: NCHCN 11:23
PROVIDERS: PCP Family Medicine; Visit Provider Family Medicine
DX: I10 Essential (primary) hypertension (principal); R73.03 Prediabetes; E55.9 Vitamin D deficiency, unspecified
CPT/HCPCS: 80053; 80061; 82306; 83036

== ENCOUNTER 2024-06-14 21:54 | Outpatient (REF) | payer MEDICARE, BC, SELFPAY ==
[2024-06-14 22:54] LABS: COMMENT (LAB VIEW ONLY) 79.49 mg/dL
== END 2024-06-14 21:55 | disposition home or self-care (01) ==
LOC: NCHCN 21:54
PROVIDERS: PCP Family Medicine; Visit Provider Family Medicine
DX: I10 Essential (primary) hypertension (principal)
CPT/HCPCS: 82043; 82570